=== PATIENT | female | born 1960 | race African-American/Black ===

== ENCOUNTER 2022-01-21 04:58 | Day surgery (SDC) | payer BC ==
[2022-01-20 14:49] VITALS: BMI 35.3
[2022-01-21 10:34] VITALS: TEMP 98.9
[2022-01-21 12:54] VITALS: BP 117/71; PULSE 73; RESP 16
== END 2022-01-21 12:11 | disposition home or self-care (01) ==
LOC: JASU-ENDO 04:58
PROVIDERS: ATTEND Student in an Organized Health Care Education/Training Program
PROC: 0DB78ZX Excision of Stomach, Pylorus, Via Natural or Artificial Opening Endoscopic, Diagnostic (ICD-10-PCS; 2022-01-21)
PROC: 0DB68ZX Excision of Stomach, Via Natural or Artificial Opening Endoscopic, Diagnostic (ICD-10-PCS; 2022-01-21)
PROC: 0DB48ZX Excision of Esophagogastric Junction, Via Natural or Artificial Opening Endoscopic, Diagnostic (ICD-10-PCS; 2022-01-21)
PROC: 0DB98ZX Excision of Duodenum, Via Natural or Artificial Opening Endoscopic, Diagnostic (ICD-10-PCS; principal; 2022-01-21 10:30)
DX: K29.50 Unspecified chronic gastritis without bleeding (principal); B96.81 Helicobacter pylori [H. pylori] as the cause of diseases classified elsewhere; K44.9 Diaphragmatic hernia without obstruction or gangrene
CPT/HCPCS: 88305-TC; 88341-TC; 88342-TC

== ENCOUNTER 2022-03-18 05:06 | Day surgery (SDC) | payer BC ==
[2022-03-17 09:31] VITALS: BMI 35.3
[2022-03-18 09:39] VITALS: BP 127/73; PULSE 63; RESP 14
[2022-03-18 12:44] VITALS: TEMP 97.7
== END 2022-03-18 09:55 | disposition home or self-care (01) ==
LOC: JASU-ENDO 05:06
PROVIDERS: ATTEND Student in an Organized Health Care Education/Training Program
PROC: 0DBL8ZX Excision of Transverse Colon, Via Natural or Artificial Opening Endoscopic, Diagnostic (ICD-10-PCS; 2022-03-18)
PROC: 0DBP8ZX Excision of Rectum, Via Natural or Artificial Opening Endoscopic, Diagnostic (ICD-10-PCS; principal; 2022-03-18 08:30)
DX: D12.3 Benign neoplasm of transverse colon (principal); K62.1 Rectal polyp; K57.30 Diverticulosis of large intestine without perforation or abscess without bleeding; K64.8 Other hemorrhoids
CPT/HCPCS: 88305-TC